=== PATIENT | female | born 1995 | race Caucasian/White ===

== ENCOUNTER 2017-05-06 15:19 | Emergency (ER) | payer OTHER ==
[~2017-05-06] VITALS: Ht 162.6 cm; Wt 58.0 kg
[2017-05-06] MEDS ORDERED: IBUPROFEN 600 MG TABLET PO ONE (16:45)
[2017-05-06 16:53] VITALS: BP 124/72
== END 2017-05-06 18:06 | disposition home or self-care (01) ==
LOC: EMS 15:21
DX: S40.011A Contusion of right shoulder, initial encounter (principal); F12.90 Cannabis use, unspecified, uncomplicated; V00.131A Fall from skateboard, initial encounter; Y93.51 Activity, roller skating (inline) and skateboarding; Y92.89 Other specified places as the place of occurrence of the external cause; Y99.8 Other external cause status
CPT/HCPCS: 81025; 99284

== ENCOUNTER 2017-12-14 21:19 | Emergency (ER) | payer MEDICAID, OTHER ==
[~2017-12-14] VITALS: Ht 160 cm; Wt 61.4 kg
[2017-12-14] MEDS ORDERED: HYDROCODONE/ACETAMINOPHEN 5-325 MG TABLET PO ONE (22:15)
[2017-12-14] MEDS ORDERED: SULFAMETHOX/TRIMETH DS 800-160 MG/TABLET PO ONE (22:15)
[2017-12-14 23:20] VITALS: BP 124/70
== END 2017-12-14 23:28 | disposition home or self-care (01) ==
LOC: EMS 21:25
DX: N61.0 Mastitis without abscess (principal); F12.90 Cannabis use, unspecified, uncomplicated
CPT/HCPCS: 99283

== ENCOUNTER 2018-02-22 19:28 | Emergency (ER) | payer MEDICAID ==
[~2018-02-22] VITALS: Ht 162.6 cm; Wt 63.6 kg
[2018-02-22 19:33] VITALS: BP 105/64
== END 2018-02-22 20:11 | disposition left against medical advice (07) ==
LOC: EMS 19:29
DX: Z53.21 Procedure and treatment not carried out due to patient leaving prior to being seen by health care provider (principal)

== ENCOUNTER 2018-07-29 19:18 | Emergency (ER) | payer MEDICAID ==
[~2018-07-29] VITALS: Ht 162.6 cm; Wt 63.6 kg
[2018-07-29 19:23] VITALS: BP 114/75
== END 2018-07-29 20:00 | disposition left against medical advice (07) ==
LOC: EMS 19:19
DX: N63.0 Unspecified lump in unspecified breast (principal); N64.4 Mastodynia; Z53.21 Procedure and treatment not carried out due to patient leaving prior to being seen by health care provider